=== PATIENT | female | born 2000 | race Caucasian/White ===

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

== ENCOUNTER 2021-03-15 12:52 | Outpatient (REF) | payer MEDICAID, SELFPAY ==
[2021-03-17 14:52] LABS: Chlamydia Result Negative (Negative); GC Result Negative (Negative)
== END 2021-03-15 12:53 | disposition home or self-care (01) ==
LOC: LBN 12:52
PROVIDERS: PCP Pediatrics; Visit Provider Nurse Practitioner Women's Health
DX: Z11.3 Encounter for screening for infections with a predominantly sexual mode of transmission (principal)
CPT/HCPCS: 87491; 87591

== ENCOUNTER 2022-07-11 16:11 | Outpatient (REF) | payer MEDICAID, SELFPAY ==
--- NOTE | 2022-07-11 15:50 | PAPFT_PTH ---
PATIENT: Deepali Kruger LOC: [facility] U#:[id number] AGE/SX: 22/F ROOM: RE07/11/[address]: Juliette Cullen NP : 2000 BED: DIS: 07/11/2022 SPEC #: [id number] RECD: 07/11/22 18:03 STATUS: SHWETHA REIvan #: [id number] LOY: 07/11/22 15:[address]: Juliette Cullen NP DEPT: [facility] Cytology RECD BY: Danyelle Guillaume ENTERED: 07/12/22 10:33 SP TYPE: PAPFT OTHR DR: Abena Pavon MD Tissues: 1 - CX/ENDOCX FOR PAP SMEARS Procedures: PAP THIN PREP/[facility] Screening Comments: [id number] (CHLAMYDIA/GC)
[2022-07-12 13:31] LABS: Chlamydia Result Negative (Negative); GC Result Negative (Negative)
== END 2022-07-11 16:12 | disposition home or self-care (01) ==
LOC: LBN 16:11
PROVIDERS: PCP Student in an Organized Health Care Education/Training Program; Visit Provider Nurse Practitioner Women's Health
DX: R87.610 Atypical squamous cells of undetermined significance on cytologic smear of cervix (ASC-US) (principal)
CPT/HCPCS: 87491; 87591; 88142

== ENCOUNTER 2022-08-22 16:12 | Outpatient (REF) | payer MEDICAID, SELFPAY ==
--- NOTE | 2022-08-22 15:30 | CER_PTH ---
PATIENT: Deepali Kruger LOC: [facility] U#:[id number] AGE/SX: 22/F ROOM: RE08/22/[address]: Maribell Galindo DO : 2000 BED: DIS: 08/22/2022 SPEC #: [id number] RECD: 08/22/22 16:29 STATUS: SHWETHA RE #: [id number] LOY: 08/22/22 15:[address]: Maribell Galindo DEPT: Surgical Specimen RECD BY: Danyelle Guillaume ENTERED: 08/22/22 16:30 SP TYPE: CER OTHR DR: Abena Pavon MD Tissues: 1 - CERVICAL BIOPSY 2 - ENDOCERVICAL BX/CURRETTE Procedures: GROSS AND MICRO LEVEL 4 Comments: [id number]
== END 2022-08-22 16:13 | disposition home or self-care (01) ==
LOC: LBN 16:12
PROVIDERS: PCP Student in an Organized Health Care Education/Training Program; Visit Provider Obstetrics & Gynecology
DX: R87.611 Atypical squamous cells cannot exclude high grade squamous intraepithelial lesion on cytologic smear of cervix (ASC-H) (principal)
CPT/HCPCS: 88305

== ENCOUNTER 2023-11-26 10:59 | Outpatient (REF) | payer SELFPAY ==
--- NOTE | 2023-11-26 10:45 | PAPFT_PTH ---
PATIENT: Deepali Kruger LOC: [facility] U#:[id number] AGE/SX: 23/F ROOM: RE11/26/[address]: Maribell Galindo DO : 2000 BED: DIS: 11/26/2023 SPEC #: [id number] RECD: 11/26/23 13:25 STATUS: SHWETHA REQ #: [id number] LOY: 11/26/23 10:[address]: Maribell Galindo DEPT: [facility] Cytology RECD BY: Marcia Skelton ENTERED: 11/26/23 13:26 SP TYPE: PAPFT OTHR DR: Abena Pavon MD Tissues: 1 - CX/ENDOCX FOR PAP SMEARS Procedures: PAP THIN PREP/[facility] Screening HPV DNA PROBE Comments: [id number] (HPV 16 & 18/45) (CHLAMYDIA/GC)
[2023-11-27 12:34] LABS: Chlamydia Result Negative (Negative); GC Result Negative (Negative)
== END 2023-11-26 11:00 | disposition home or self-care (01) ==
LOC: LBN 10:59
PROVIDERS: PCP Student in an Organized Health Care Education/Training Program; Visit Provider Obstetrics & Gynecology
DX: Z30.9 Encounter for contraceptive management, unspecified (principal); Z01.419 Encounter for gynecological examination (general) (routine) without abnormal findings; R87.611 Atypical squamous cells cannot exclude high grade squamous intraepithelial lesion on cytologic smear of cervix (ASC-H)
CPT/HCPCS: 87491; 87591; 88142; 88164; 87624; P3000